=== PATIENT | female | born 1995 | race Caucasian/White ===

== ENCOUNTER 2021-02-07 07:48 | Outpatient (REF) | payer MEDICAID, SELFPAY | END 2021-02-07 07:49 | disposition home or self-care (01) | LOC: HO.LAB 07:48 | PROVIDERS: Visit Provider Internal Medicine | DX: Z20.822 Contact with and (suspected) exposure to COVID-19 (principal) | CPT/HCPCS: C9803; U0003; U0005 ==

== ENCOUNTER 2021-05-08 11:50 | Outpatient (REF) | payer MEDICAID, SELFPAY | END 2021-05-08 11:51 | disposition home or self-care (01) | LOC: HO.LAB 11:50 | PROVIDERS: PCP Physician Assistant Medical; Visit Provider Internal Medicine | DX: Z20.822 Contact with and (suspected) exposure to COVID-19 (principal) | CPT/HCPCS: C9803; U0003; U0005 ==

== ENCOUNTER 2021-06-20 09:01 | Outpatient (REF) | payer MEDICAID, SELFPAY | END 2021-06-20 09:02 | disposition home or self-care (01) | LOC: HO.LAB 09:01 | PROVIDERS: PCP Physician Assistant Medical; Visit Provider Internal Medicine | DX: Z20.822 Contact with and (suspected) exposure to COVID-19 (principal) | CPT/HCPCS: C9803; U0003; U0005 ==

== ENCOUNTER 2021-07-13 10:00 | Outpatient (REF) | payer MEDICAID, SELFPAY | END 2021-07-13 10:01 | disposition home or self-care (01) | LOC: HO.LAB 10:00 | PROVIDERS: PCP Physician Assistant Medical; Visit Provider Internal Medicine | DX: Z20.822 Contact with and (suspected) exposure to COVID-19 (principal) | CPT/HCPCS: C9803; U0003; U0005 ==

== ENCOUNTER 2021-07-25 14:29 | Outpatient (REF) | payer MEDICAID, SELFPAY | END 2021-07-25 14:30 | disposition home or self-care (01) | LOC: HO.LAB 14:29 | PROVIDERS: PCP Physician Assistant Medical; Visit Provider Internal Medicine | DX: Z20.822 Contact with and (suspected) exposure to COVID-19 (principal) | CPT/HCPCS: C9803; U0003; U0005 ==